=== PATIENT | female | born 1960 | race Caucasian/White ===

== ENCOUNTER 2024-11-22 09:50 | Day surgery (SDC) | payer BC ==
[2024-11-19 15:41] VITALS: BP 125/88
[~2024-11-22] VITALS: Ht 165.1 cm; Wt 71.6 kg
[~2024-11-22 09:50] MED LIST: CEFAZOLIN SODIUM 2 GM/20 ML SYR IV SCH; DEXAMETHASONE SOD PHOS 4 MG/ML VIAL ONE; IBLOOD GLUCOSE TEST STRIP 1 EA TEST VI PRN; LACTATED RINGER'S 1,000 ML IV SCH; LIDOCAINE HCL 1% 5 ML SDV INJ ONE; LIDOCAINE HCL 2% 5 ML SDV ONE; MIDAZOLAM HCL 2 MG/2 ML VIAL ONE; Ropivacaine HCl 0.5% 30 ML VIAL ONE; SODIUM CHLORIDE 0.9% 20 ML IV ONE
[2024-11-22] MEDS ORDERED: NALOXONE HCL 0.4 MG SYR IV PRN (10:00)
[2024-11-22] MEDS ORDERED: fentaNYL citrate 50 MCG/ML SDV IV PRN (10:00)
[2024-11-22] MEDS ORDERED: IBLOOD GLUCOSE TEST STRIP 1 EA TEST VI PRN (10:00)
[2024-11-22] MEDS ORDERED: ondansetron HCL 4 MG/2 ML VIAL IV PRN (10:00)
[2024-11-22 10:07] VITALS: BP 133/81
[2024-11-22] MEDS ORDERED: HYDROCODONE/ACETA 5/325 TAB PO PRN (10:45)
[2024-11-22] MEDS ORDERED: propofoL 200 MG/20 ML VIAL ONE (11:02)
[2024-11-22] MEDS ORDERED: DEXAMETHASONE SOD PHOS 4 MG/ML VIAL ONE (11:02)
[2024-11-22] MEDS ORDERED: ondansetron HCL 4 MG/2 ML VIAL ONE (11:02)
[2024-11-22] MEDS ORDERED: LIDOCAINE HCL 2% 5 ML SDV ONE (11:03)
[2024-11-22] MEDS ORDERED: fentaNYL citrate 100 MCG/2 ML VIAL ONE (11:06)
[2024-11-22] MEDS ORDERED: HYDROCODON-ACE1 EA10 PO (12:24)
--- NOTE | 2024-11-22 12:36 | NUR ---
11/22/24 1236 Yumi Troncoso 1214-PT ARRIVES TO PACU VIA STRETCHER, RESTING SEMI FOWLERS, PT NOT RESPONSIVE TO VERBAL OR TACTILE STIMULI, VSS ON RA, RR EVEN AN UNLABORED. RT FOREARMS ELEVATED AND ICE PACK APPLIED. 1230-PT AWAKENS TO VOICE, PT DENIES PAIN OR NAUSEA, VSS ON RA. PT FALLS BACK TO SLEEP EASILY, RR EVEN AND UNLABORED.
[2024-11-22 12:45] VITALS: BP 117/71
--- NOTE | 2024-11-22 12:55 | NUR ---
1245-PT ARRIVED BACK TO ON RA, DROWSY, BUT EASILY AROUSED WITH VERBAL STIMULI. PT ANSWERS QUESTIONS APPROPRIATELY. REPORT RECEIVED FROM TRADESHOW WORKER AND SURIGCAL SITE VISUALIZED WITH TRADESHOW WORKER. DRSG APPEARS CDI. SLING IN PLACE TO RUE WITH EFFECTIVE ELEVATION AT HEART LEVEL. ICE PACK IN PLACE TO SURGICAL SITE. CMS REMAINS INTACT. PT DENIES PAIN AND REPORTS RUE REMAINS NUMB, BUT IS ABLE TO WIGGLE FINGERS. VS TAKEN, STABLE. IV SITE ASSESSED, PATENT, AND INFUSINGLR PER ORDERS. PT DENIES NAUSEA WHEN ASKED. PT PROVIDED ICE WATER, CRACKERS, AND PUDDING. HOB ELEVATED TO APPROX 60 DEGREES TO AID IN EATING/DRINKING. ALL QUESTIONS ANSWERED. BED IN LOW POSITION, WHEELS LOCKED, BILAT RAILS IN PLACE FOR SAFETY, AND CALL LIGHT WITHIN PT REACH.
[2024-11-22 13:40] VITALS: BP 115/77
--- NOTE | 2024-11-22 13:46 | OR ---
[facility] [address], [place] [address] Signed DATE OF OPERATION: 11/22/2024 SURGEON: Victor M Zavala MD PREOPERATIVE DIAGNOSIS: Pathologic fracture, right 4th metacarpal. POSTOPERATIVE DIAGNOSIS: Pathologic fracture, right 4th metacarpal. PROCEDURES PERFORMED: 1. Open reduction and internal fixation, right 4th metacarpal. 2. Open biopsy, bone lesion. LEAF BINNER: None. ANESTHESIA: General. TOURNIQUET TIME: 40 minutes. IMPLANTS: Synthes 2.0 six-hole plate with six screws. BRIEF HISTORY: Angi is a 64-year-old female, who was loading the recycling bin when she struck her hand on the metal. She had immediate pain. Radiographs showed a fracture through the lesion in her 4th metacarpal. Risks, benefits, and alternatives of surgery were discussed with her and she elected to proceed. DESCRIPTION OF PROCEDURE: Once consent was obtained, she was taken to the operating room. After adequate anesthesia, she was placed on the operating room table with a hand table. The arm was placed in the proximal arm tourniquet and prepped and draped in a standard sterile fashion. The arm was exsanguinated using Esmarch bandage. Tourniquet inflated to 200 mmHg. The 4th metacarpal was approached through a dorsal incision, carried through skin and subcutaneous tissue. The extensor tendon was identified, retracted, and protected. The periosteum was incised longitudinally and elevated off the fracture and the Electronically Signed By: VICTOR M ZAVALA MD 11/22/24 1346 PATIENT NAME: ANGI GRACIA OPERATIVE REPORT DATE OF : 62 REPORT #: [id number] PHYSICIAN: VICTOR M ZAVALA MD PCP: IGOR STOVALL MD REPORT IS CONFIDENTIAL AND NOT TO BE RELEASED WITHOUT AUTHORIZATION [facility] [address] [facility] [place], [place] [address] Signed metacarpal proximally and distally. The fracture was then distracted. An open biopsy was performed of the intramedullary contents. The bone particularly on the ulnar aspect of the 4th metacarpal was extremely thin and friable, eggshell like in consistency. We were able then to reduce and cross clamp the fracture by wrapping a clamp completely around the bone rather than trying to use a point. We guided out, distracted and with appropriate rotation. A six hole plate was then fashioned to the superior surface. The screws were drilled and appropriate length screws were placed. This was then checked using final image intensifier photos and showed good screw lengths, placement, and alignment. The wound was copiously irrigated with normal saline. The periosteum was carefully closed underneath the tendon using 3-0 Monocryl, subcutaneous tissue with 3-0 Monocryl and skin with 3-0 nylon. The wound was dressed with Allevyn and sterile cast padding and an ulnar gutter splint. She tolerated the procedure well. All sponge, needle, and instrument counts were correct. Victor M Zavala MD BA/RONAK /[id number] Copies: ~ Electronically Signed By: VICTOR M ZAVALA MD 11/22/24 1346 PATIENT NAME: ANN MARIE GARCIAТАТЬЯНА Marc OPERATIVE REPORT DATE OF : 62 REPORT #: [id number] PHYSICIAN: VICTOR M ZAVALA MD PCP: IGOR STOVALL MD REPORT IS CONFIDENTIAL AND NOT TO BE RELEASED WITHOUT AUTHORIZATION
--- NOTE | 2024-11-22 14:15 | NUR ---
1340-INTO PTS ROOM FOR ROUTINE REASSESSMENT. VS TAKEN. IV SL'D. PT DENIES NAUSEA WHEN ASKED. PT ALSO CONT TO DENY PAIN WHEN ASKED AND REPORTS RUE TO STILL BE NUMB. PT REMAINS ABLE TO WIGGLE FINGERS. CMS INTACT. SURGICAL DRSG VISUALIZED AND WITHOUT ACUTE CHANGES NOTED FROM PREVIOUS ASSESSMENT. PT WITH SLING IN PLACE AND ICE TO SURGICAL SITE. PT HAS TOLERATED PO FOOD AND FLUIDS W/O ISSUES NOTED/REPORTED. 1345-PT FEELS SHE MAYBE ABLE TO VOID AND REQUESTS TO USE RESTROOM. PT SITTING UP ON EOB AND SLING IS FITTED TO PT. PT STOOD AND AMBULATED ACROSS [place] TO RESTROOM WITH RN AND SRT SBA FOR SAFETY. 1350-PT ABLE TO VOID APPROX 150 ML OF CLR, YELLOW URINE. 1355-PT SITTING ON EOB WITH CALL LIGHT AND PERSONAL BELONINGS WITHIN REACH. PT REPORTS SHE WOULD LIKE TO TRY DRESSING ON HER OWN AND WILL CALL IF SHE RUNS INTO DIFFICULTIES. PT RIDE CALLED AND REPROTS SHE IS IN PARKING LOT. 1400-PT CALLED FOR ASSISTANCE. PT WAS ABLE TO DRESS LOWER BODY, HOWEVER WAS UNSURE HOW TO DRESS UPPER BODY WITH SLING/CAST. ASSISTED PT IN REMOVING SLING AND GOWN. PT HOLDING RUE IN PLACE CLOSE TO BODY. PT EDUCATED ON PLACING SHIRT ARM OVER FX ARM FIRST AND THEN PLACING OVER HEAD AND OTHER ARM. ASSISTED PT IN PLACING SHIRT, COAT, AND SLING BACK ON. ASSITED PT WITH TYING SHOES WELL. 1405-IV REMOVED. TIP APPEARS INTACT. PRESSURE DRSG APPLIED WITH GAUZE AND COBAN. DISCHARGE EDUCATION PROVIDED. PT GIVEN F/U APPT INFO AND INFORMED TO LEAVE DRSG IN PLACE UNTIL THAT APPT. PT EDUCATED ON RX, COLD THERAPY, AND ELEVATION. PT ALSO EDUCATED ON ACTIVITY LIMITATIONS UNTIL ADVISE DIFFERENTLY BY DR. BAIG OFFICE. PT ALSO PROVIDED PT SAFIA AFTER HOURS PHONE NUMBER. PT VERABLIZED UNDERSTANDING AND ALL QUESTIONS WERE ANSWERED. 1415-ICE PACK REFILLED WELL ICE WATER. RIDE CALLED AGAIN AND WILL MEET IN FRONT OF HOSPITAL.
--- NOTE | 2024-11-22 14:20 | NUR ---
PT DISCHARGED FROM VIA TO PASSENGER SIDE OF HER FRIEND'S (TIFFANY VELAZQUEZ) CAR. ALL PERSONAL BELONINGS TAKEN WITH PT.
[2024-11-22] MEDS ORDERED: SEVOFLURANE 250 ML BTL INH ONE (14:58)
--- NOTE | 2024-11-27 14:20 | PATH ---
[facility] [address], [place] [address] Signed SPECIMEN(S): A RIGHT HAND CHONDRAL BONE LESION SPECIMEN SOURCE: A. RIGHT HAND CHONDRAL BONE LESION CLINICAL HISTORY: Fourth metacarpal close fracture FINAL PATHOLOGIC DIAGNOSIS: Designated "right hand chondral bone lesion": - Fragments of mature lobulated cartilage, see comment COMMENT: Sections demonstrate fragments of mature cartilage with focal enchondral ossification. Some fragments demonstrate a bland spindle cell proliferation associated with the hyalin cartilage. Features of malignancy are not seen. The histologic differential diagnosis includes soft tissue chondroma, enchondroma and, in this location, bizarre parosteal osteochondromatous proliferation (BPOP, Eduarda's lesion). A low-grade chondrosarcoma cannot be entirely excluded histologically. No clinical history or radiographic information is submitted with the specimen, and in the absence of this information no clinicopathologic correlation may be provided. Correlation with all clinical and radiographic information is needed. [facility] MICROSCOPIC EXAMINATION: Histologic sections of all submitted blocks are examined by light microscopy. These findings, together with the gross examination, support the pathologic diagnosis. GROSS DESCRIPTION: The specimen, labeled and designated "Addy, right hand chondral bone lesion," is received in formalin and consists of multiple bone and cartilage tissue fragments that aggregate measure 1.5 x 1.2 x 0.2 cm. Specimen is left for decalcification in Immun[facility] prior processing. Entirely submitted in (A1). JS (under the direct supervision of a pathologist) The Gross Description was prepared using a voice recognition system. The report was reviewed for accuracy; however, sound-alike word errors, addition and/or deletions may occur. If there is any PATIENT NAME: ANGI GARCIA PATHOLOGY DATE OF : 62 REPORT #: [id number] PHYSICIAN: MARITZA VITALE PCP: IGOR STOVALL MD REPORT IS CONFIDENTIAL AND NOT TO BE RELEASED WITHOUT AUTHORIZATION [facility] [address], [place] [address] Signed question about this report, please contact Client Services. ADDITIONAL NOTES: Immunohistochemical and/or in situ hybridization studies if performed in this case included appropriate positive controls that reacted as expected. This test was developed and its performance characteristics determined by [facility]. It has not been cleared or approved by the U.S. Food and Drug Administration. The FDA has determined that such clearance or approval is not necessary. This test is used for clinical purposes. It should not be regarded as investigational or for research. [facility] is certified under the Clinical Laboratory Improvement Amendments of 1988 (CLIA) as qualified to perform high complexity clinical laboratory testing. PERFORMING LABORATORY: Technical component was performed by [facility], [address] [place] [id number] (CLIA# [id number]). Professional interpretation was performed by [facility], [address] [place] [id number] (CLIA#: [id number]). Diagnostician: Paresh Christian MD Pathologist Electronically Signed 11/27/2024 Copies: ~ PATIENT NAME: ANGI GARCIA PATHOLOGY DATE OF : 62 REPORT #: [id number] PHYSICIAN: MARITZA VITALE PCP: IGOR STOVALL MD REPORT IS CONFIDENTIAL AND NOT TO BE RELEASED WITHOUT AUTHORIZATION
== END 2024-11-22 14:20 | disposition home or self-care (01) ==
LOC: DS 09:50
PROVIDERS: ATTEND Specialist
PROC: 0PSP04Z Reposition Right Metacarpal with Internal Fixation Device, Open Approach (ICD-10-PCS; principal; 2024-11-22 12:00)
DX: S62.324A Displaced fracture of shaft of fourth metacarpal bone, right hand, initial encounter for closed fracture (principal); W22.8XXA Striking against or struck by other objects, initial encounter
CPT/HCPCS: 01830; 64417; 73120; C1713; J0690; J1100; J2003; J2250; J2405; J2704; J2795; J3010; J7121